=== PATIENT | female | born 1955 | race Caucasian/White ===

== ENCOUNTER → 2017-03-31 | Outpatient (CLI) | payer BC | LOC: LABMAIN 12:05 | PROVIDERS: ATTEND Family Medicine | DX: Z53.9 Procedure and treatment not carried out, unspecified reason (principal) ==

== ENCOUNTER 2017-04-11 02:37 | Emergency (ER) | payer BC ==
[2017-04-11 02:44] VITALS: TEMP 98.6
[2017-04-11] MEDS ORDERED: MECLIZINE 12.5 MG TAB PO STA ×2 (02:56→03:03)
[2017-04-11] MEDS ORDERED: SODIUM CHLORIDE 0.9% 1,000 ML IV STA (02:56)
--- NOTE | 2017-04-11 03:00 | ED ---
General Adult HPI - General Chief complaint: Dizziness Stated complaint: vertigo Time Seen by Provider: 04/11/17 02:49 Source: patient, RN notes reviewed Mode of arrival: wheelchair Limitations: no limitations - History of Present Illness Initial comments: 61-year-old female presents to the emergency department with the chief complaint of vertigo. Patient states that she woke up in the middle the night to go to the bathroom and all of a sudden the room was spinning around her. Patient states she had called to her daughter to come help get her up. Patient states that if she keeps her head forward she does not have symptoms but if she moves her head at all the room starts to spin. Patient states he was making her somewhat nauseous at home. Patient denies any falls traumas or injuries with this. Patient does admit to some mild pain in the back of the head. Patient states that she did have this ruled out 5 years ago which she was started on Antivert. Patient states he tried the maneuvers at home to get it to go away but she was unable to tolerate them. Family states as well as patient that they were concerned due to the intensity of her vertigo without that they should be seen. - Related Data Home Medications Medication Instructions Recorded Confirmed Estradiol [Estradiol] 1 patch TD WEEKLY 07/23/14 04/11/17 Diphenoxylate HCl/Atropine 1 each PO BID 04/11/17 04/11/17 [Lomotil 2.5-0.025 mg Tablet] Lisinopril [Prinivil] 20 mg PO DAILY 04/11/17 04/11/17 metroNIDAZOLE [Flagyl] 500 mg PO Q8HR 04/11/17 04/11/17 Previous Rx's Medication Instructions Recorded Meclizine [Antivert] 12.5 mg PO Q6H #30 tablet 04/11/17 Allergies Allergy/AdvReac Type Severity Reaction Status Date / Time Penicillins AdvReac Rash/Hives Verified 04/11/17 02:44 Review of Systems ROS Statement: Those systems with pertinent positive or pertinent negative responses have been documented in the HPI. ROS Other: All systems not noted in ROS Statement are negative. Past Medical History Past Medical History: Hypertension Additional Past Medical History / Comment(s): hormone replacement, menopause Vertigo History of Any Multi-Drug Resistant Organisms: None Reported Past Surgical History: No Surgical Hx Reported Past Psychological History: No Psychological Hx Reported Smoking Status: Former smoker Past Alcohol Use History: Occasional Past Drug Use History: None Reported General Exam - General Exam Comments Initial Comments: General: The patient is awake and alert, in no distress, and does not appear acutely ill. Eye: Pupils are equal, round and reactive to light, extra-ocular movements are intact; there is normal conjunctiva bilaterally. No signs of icterus. Ears, nose, mouth and throat: There are moist mucous membranes and no oral lesions. Neck: The neck is supple, there is no tenderness. Cardiovascular: There is a regular rate and rhythm. No murmur, rub or gallop is appreciated. Respiratory: Lungs are clear to auscultation, respirations are non-labored, breath sounds are equal. No wheezes, stridor, rales, or rhonchi. Gastrointestinal: Soft, non-distended, non-tender abdomen without masses or organomegaly noted. There is no rebound or guarding present. No CVA tenderness. Bowel sounds are unremarkable. Back: There is no tenderness to palpation in the midline. There is no obvious deformity. No rashes noted. Musculoskeletal: Normal ROM, no tenderness, There is no pedal edema. There is no calf tenderness or swelling. Sensation intact. Pulses equal bilaterally 2+. Neurological: CN II-XII intact, There are no obvious motor or sensory deficits. Coordination appears grossly intact. Speech is normal. No ataxia Skin: Skin is warm and dry and no rashes or lesions are noted. Psychiatric: Cooperative, appropriate mood & affect, normal judgment. Limitations: no limitations Course Vital Signs 04/11/17 02:40 Temperature 98.6 F Pulse Rate 85 Respiratory 18 Rate Blood Pressure 148/72 O2 Sat by Pulse 100 Oximetry EKG Findings - EKG Comments: EKG Findings:: normal sinus rhythm 71 bpm, normal axis, no atopy, no S-T depressions or elevations, Medical Decision Making - Medical Decision Making 61-year-old female presents to the emergency department with a chief complaint of vertigo patient has a history of vertigo and states this is much at the vertigo that she has had in the past. Patient states if she looks down and she notices increased dizziness. Patient received Antivert here and has started to feel better. This and we will give her Valium to help her symptoms so that she can go home to having night sweats. We did discuss we'll start her on antibiotics for home. We discussed return parameters and follow-up. Patient stated that she understood all questions have been answered. She will be discharged. - Lab Data Result diagrams: 04/11/17 03:10 Lab Results 04/11/17 04/11/17 Range/Units 03:10 03:10 WBC 10.4 (3.8-10.6) k/uL RBC 4.27 (3.80-5.40) m/uL Hgb 12.8 (11.4-16.0) gm/dL Hct 38.4 (34.0-46.0) % MCV 89.9 (80.0-100.0) fL MCH 30.0 (25.0-35.0) pg MCHC 33.3 (31.0-37.0) g/dL RDW 12.7 (11.5-15.5) % Plt Count 327 (150-450) k/uL Neutrophils % 80 % Lymphocytes % 12 % Monocytes % 5 % Eosinophils % 1 % Basophils % 0 % Neutrophils # 8.3 H (1.3-7.7) k/uL Lymphocytes # 1.2 (1.0-4.8) k/uL Monocytes # 0.6 (0-1.0) k/uL Eosinophils # 0.1 (0-0.7) k/uL Basophils # 0.0 (0-0.2) k/uL Urine Color Light Yellow Urine Appearance Clear (Clear) Urine pH 6.0 (5.0-8.0) Ur Specific [place] 1.001 (1.001-1.035) Urine Protein Negative (Negative) Urine Glucose (UA) Negative (Negative) Urine Ketones Negative (Negative) Urine Blood Negative (Negative) Urine Nitrite Negative (Negative) Urine Bilirubin Negative (Negative) Urine Urobilinogen <2.0 (<2.0) mg/dL Ur Leukocyte Esterase Negative (Negative) Disposition Clinical Impression: Vertigo Disposition: HOME SELF-CARE Condition: Stable Instructions: Vertigo (ED) Additional Instructions: Please use medication as discussed. Please follow up with family doctor if symptoms have not improved over the next two days. Please return to the emergency room if your symptoms increase or worsen or for any other concerns. Prescriptions: Meclizine [Antivert] 12.5 mg PO Q6H #30 tablet Referrals: Vikas Alejandre MD [Primary Care Provider] - 1-2 days
[2017-04-11 03:36] LABS: Appearance,Urine Clear (Clear); Bilirubin,Urine Negative (Negative); Glucose,Urine (UA) Negative (Negative); Ketones,Urine Negative (Negative); Leukocyte Esterase,Urine Negative (Negative); Nitrite,Urine Negative (Negative); Protein,Urine Negative (Negative); Specific Gravity,Urine 1.001 (1.001-1.035); UA Billing (MACRO vs. MICRO) CHEM; Urobilinogen,Urine <2.0 mg/dL (<2.0)
[2017-04-11 03:39] LABS: Basophils % (A) 0 %; CH 30.2; CHCM 33.7; Eosinophils # (A) 0.1 k/uL (0-0.7); Eosinophils % (A) 1 %; HCT 38.4 % (34.0-46.0); HDW 2.45; HGB 12.8 gm/dL (11.4-16.0); Luc # (Auto) 0.21; Luc % (Auto) 2; Lymphocytes # (A) 1.2 k/uL (1.0-4.8); Lymphocytes % (A) 12 %; MCHC 33.3 g/dL (31.0-37.0); MCV 89.9 fL (80.0-100.0); Monocytes # (A) 0.6 k/uL (0-1.0); Monocytes % (A) 5 %; Neutrophils # (A) 8.3 k/uL (1.3-7.7); Neutrophils % (A) 80 %; RBC 4.27 m/uL (3.80-5.40); RDW 12.7 % (11.5-15.5); WBC 10.4 k/uL (3.8-10.6); WBC (Perox) 10.66
[2017-04-11] MEDS ORDERED: DIAZEPAM 5 MG/ML 2 ML SYRINGE IVP STA (03:54)
[2017-04-11 04:04] VITALS: BP 145/68; PULSE 72; RESP 16
--- NOTE | 2017-04-11 04:07 | CT ---
EXAM: CT Head Without Intravenous Contrast CLINICAL HISTORY: Reason: Pain TECHNIQUE: Axial computed tomography images of the head/brain without intravenous contrast. CTDI is 57.40 mGy and DLP is 1064.30 mGy-cm. This CT exam was performed using one or more of the following dose reduction techniques: automated exposure control, adjustment of the mA and/or kV according to patient size, and/or use of iterative reconstruction technique. COMPARISON: MRI of the brain dated 12/08/2015 FINDINGS: Brain: Unremarkable. No hemorrhage. No significant white matter disease. No edema. Ventricles: Unremarkable. No ventriculomegaly. Bones/joints: Hyperostosis frontalis interna is seen. No acute fracture. Soft tissues: Unremarkable. Sinuses: 1.3 cm polyp versus mucous retention cyst in the right maxillary sinus. Mastoid air cells: Unremarkable as visualized. No mastoid effusion. IMPRESSION: No acute findings.
[2017-04-11 04:08] LABS: ALT 37 U/L (9-52); AST 30 U/L (14-36); Alkaline Phosphatase 47 U/L (38-126); Anion Gap 11 mmol/L; Blood Urea Nitrogen 14 mg/dL (7-17); Calcium 9.3 mg/dL (8.4-10.2); Carbon Dioxide 22 mmol/L (22-30); Chloride 107 mmol/L (98-107); Glucose 95 mg/dL (74-99); Non-African American GFR(MDRD) >60 (>60 ml/min/1.73 sqM); Potassium 4.4 mmol/L (3.5-5.1); Sodium 140 mmol/L (137-145); Total Bilirubin 0.4 mg/dL (0.2-1.3); Total Protein 5.9 g/dL (6.3-8.2)
== END 2017-04-11 04:28 | disposition home or self-care (01) ==
LOC: EC 02:37
DX: R42 Dizziness and giddiness (principal); R51 Headache; I10 Essential (primary) hypertension; Z88.0 Allergy status to penicillin; Z87.891 Personal history of nicotine dependence; Z79.890 Hormone replacement therapy; Z79.899 Other long term (current) drug therapy
CPT/HCPCS: 99284; 96374; 96361; 36415; 93005; 80053; 84484; 85025; 81003; 70450; J3360

== ENCOUNTER → 2018-02-13 | Outpatient (CLI) | payer BC ==
--- NOTE | 2018-02-13 11:44 | MM ---
Reason for exam: screening (asymptomatic). Last mammogram was performed 1 year and 8 months ago. History: Patient is postmenopausal. Family history of breast cancer in paternal grandmother at age 80. Taking estrogen for 7 years. Taking progesterone for 7 years. Taking other hormone for 7 years. Physical Findings: A clinical breast exam by your physician is recommended on an annual basis and results should be correlated with mammographic findings. MG 3D Screening Mammo W/Cad Bilateral CC and MLO view(s) were taken. Prior study comparison: June 12, 2016, bilateral MG 3d screening mammo w/cad. May 03, 2014, bilateral MG screening mammo w CAD. There are scattered fibroglandular densities. No suspicious abnormality. ASSESSMENT: Negative, BI-RAD 1 RECOMMENDATION: Routine screening mammogram of both breasts in 1 year.
== END ==
LOC: RADMAMWWP 07:13
PROVIDERS: ATTEND Obstetrics & Gynecology
DX: Z12.31 Encounter for screening mammogram for malignant neoplasm of breast (principal)
CPT/HCPCS: 77063; 77067

== ENCOUNTER → 2018-08-07 | Outpatient (CLI) | payer BC ==
[2018-08-07 09:00] LABS: Basophils # (A) 0.1 k/uL (0-0.2); Basophils % (A) 1 %; Eosinophils # (A) 0.1 k/uL (0-0.7); Eosinophils % (A) 2 %; HCT 42.3 % (34.0-46.0); Lymphocytes # (A) 1.6 k/uL (1.0-4.8); Lymphocytes % (A) 29 %; MCHC 33.1 g/dL (31.0-37.0); MCV 90.6 fL (80.0-100.0); Mean Platelet Volume 7.4; Monocytes # (A) 0.4 k/uL (0-1.0); Monocytes % (A) 7 %; Neutrophils # (A) 3.3 k/uL (1.3-7.7); Neutrophils % (A) 59 %; Platelet Count 205 k/uL (150-450); RBC 4.67 m/uL (3.80-5.40); RDW 12.4 % (11.5-15.5); WBC 5.5 k/uL (3.8-10.6)
[2018-08-07 17:52] LABS: Albumin 4.6 g/dL (3.80-4.90); Albumin/Globulin Ratio 2.42 (1.20-2.10); Bilirubin, Conjugated 0.2 mg/dL (0.20-0.40); Bilirubin,Unconjugated 0.4 mg/dL; Calcium 9.6 mg/dL (8.7-10.3); Globulin 1.9 g/dL (2.1-3.7); Total Bilirubin 0.6 mg/dL (0.3-1.2); Total Protein 6.5 g/dL (6.2-8.2)
[2018-08-07 17:55] LABS: T4, Free (Free Thyroxine) 1.3 ng/dL (0.80-1.80)
[2018-08-07 18:04] LABS: Thyroid Peroxidase Antibodies 50.6 U/mL (0.0-60.0); Vitamin D 25 Hydroxy 43.5 ng/mL (30.0-100.0)
[2018-08-07 18:09] LABS: Hemoglobin A1C 5.2 % (4.0-6.0); Insulin Level 3.6 mIU/mL (3.0-25.0)
[2018-08-08 05:54] LABS: Mycoplasma IgM Antibody 0.2 INDEX (<=0.90)
== END | disposition home or self-care (01) ==
LOC: LABWHC1 08:08
PROVIDERS: ATTEND General Practice
DX: D64.9 Anemia, unspecified (principal); D68.9 Coagulation defect, unspecified; E03.9 Hypothyroidism, unspecified; E06.9 Thyroiditis, unspecified; E16.1 Other hypoglycemia; E55.9 Vitamin D deficiency, unspecified; E61.2 Magnesium deficiency; E72.11 Homocystinuria; E78.00 Pure hypercholesterolemia, unspecified; J16.0 Chlamydial pneumonia; R73.09 Other abnormal glucose; R94.4 Abnormal results of kidney function studies; R94.5 Abnormal results of liver function studies; E60 Dietary zinc deficiency; E61.0 Copper deficiency; Z13.9 Encounter for screening, unspecified
CPT/HCPCS: 36415; 80076; 82306; 82310; 82525; 82565; 82947; 83036; 83090; 83525; 83735; 84439; 84443; 84481; 84520; 84630; 85025; 85384; 86141; 86376; 86738; 86800; 86900; 86901

== ENCOUNTER → 2019-03-30 | Outpatient (CLI) | payer BC ==
--- NOTE | 2019-03-30 09:22 | MM ---
Reason for exam: screening (asymptomatic). Last mammogram was performed 1 year and 1 month ago. History: Patient is postmenopausal. Family history of breast cancer in paternal grandmother at age 80. Taking estrogen for 8 years 1 month. Taking progesterone for 8 years 1 month. Taking other hormone for 7 years. Physical Findings: A clinical breast exam by your physician is recommended on an annual basis and results should be correlated with mammographic findings. MG 3D Screening Mammo W/Cad Bilateral CC and MLO view(s) were taken. Prior study comparison: February 13, 2018, bilateral MG 3d screening mammo w/cad. June 12, 2016, bilateral MG 3d screening mammo w/cad. The breast tissue is heterogeneously dense. This may lower the sensitivity of mammography. No suspicious abnormality. No significant changes when compared with prior studies. ASSESSMENT: Negative, BI-RAD 1 RECOMMENDATION: Routine screening mammogram of both breasts in 1 year.
== END | disposition home or self-care (01) ==
LOC: RADMAMWWP 07:02
PROVIDERS: ATTEND Family Medicine
DX: Z12.31 Encounter for screening mammogram for malignant neoplasm of breast (principal)
CPT/HCPCS: 77063; 77067

== ENCOUNTER → 2019-05-12 | Outpatient (CLI) | payer BC | END | disposition home or self-care (01) | LOC: LABWHC1 08:36 | PROVIDERS: ATTEND General Practice | DX: E78.00 Pure hypercholesterolemia, unspecified (principal); E72.11 Homocystinuria | CPT/HCPCS: 36415; 83090 ==

== ENCOUNTER 2020-02-14 21:32 | Emergency (ER) | payer BC ==
[2020-02-14 21:39] VITALS: RESP 18
[2020-02-14] MEDS ORDERED: SODIUM CHLORIDE 0.9% 1,000 ML IV STA (21:56)
--- NOTE | 2020-02-14 22:05 | ED ---
Abdominal Pain HPI - General Chief Complaint: Abdominal Pain Stated Complaint: abd pain Time Seen by Provider: 02/14/20 21:42 Source: patient, EMS Mode of arrival: EMS Limitations: no limitations - History of Present Illness Initial Comments: Patient is 64-year-old female presenting to emergency Department with a chief complaint of abdominal pain. Patient reports a few hours prior to arrival she was eating a grilled cheese sandwich and 10 minutes after she developed sudden onset of lower abdominal pain along with nausea and multiple episodes of non bilious, nonbloody vomiting. She also reports some abdominal bloating .Patient also reports some stool incontinence. Patient reports the abdominal pain became more severe and she called EMS. Patient reports in the ambulance she received some antibiotics which drastically improved her symptoms. Patient reports the pain is minimal at this point. Denies any chest pain shortness of breath nausea at this time. Denies any history of previous abdominal surgeries. Denies any urinary or vaginal symptoms. - Related Data Home Medications Medication Instructions Recorded Confirmed Estradiol 1 patch TD WEEKLY 07/23/14 04/11/17 Diphenoxylate HCl/Atropine 1 each PO BID 04/11/17 04/11/17 [Lomotil 2.5-0.025 mg Tablet] Lisinopril [Prinivil] 20 mg PO DAILY 04/11/17 04/11/17 metroNIDAZOLE [Flagyl] 500 mg PO Q8HR 04/11/17 04/11/17 Previous Rx's Medication Instructions Recorded Meclizine [Antivert] 12.5 mg PO Q6H #30 tablet 04/11/17 Ondansetron Odt [Zofran Odt] 4 mg PO Q8HR PRN #10 tab 02/14/20 Allergies Allergy/AdvReac Type Severity Reaction Status Date / Time Penicillins AdvReac Rash/Hives Verified 04/11/17 02:44 Review of Systems ROS Statement: Those systems with pertinent positive or pertinent negative responses have been documented in the HPI. ROS Other: All systems not noted in ROS Statement are negative. Past Medical History Past Medical History: Hypertension Additional Past Medical History / Comment(s): hormone replacement, menopause Vertigo History of Any Multi-Drug Resistant Organisms: None Reported Past Surgical History: No Surgical Hx Reported Past Psychological History: No Psychological Hx Reported Smoking Status: Former smoker Past Alcohol Use History: Occasional Past Drug Use History: None Reported General Exam Limitations: no limitations General appearance: alert, in no apparent distress Head exam: Present: atraumatic, normocephalic, normal inspection Eye exam: Present: normal appearance, PERRL, EOMI Pupils: Present: normal accommodation ENT exam: Present: normal exam, normal oropharynx, mucous membranes moist, TM's normal bilaterally, normal external ear exam Neck exam: Present: normal inspection, full ROM Respiratory exam: Present: normal lung sounds bilaterally Cardiovascular Exam: Present: regular rate, normal rhythm, normal heart sounds GI/Abdominal exam: Present: soft, tenderness (very mild diffuse lower abdominal tenderness.). Absent: distended, guarding, rebound, rigid Extremities exam: Present: normal inspection, full ROM Back exam: Present: normal inspection, full ROM Neurological exam: Present: alert, oriented X3 Psychiatric exam: Present: normal affect, normal mood Skin exam: Present: warm, dry, intact, normal color Course Vital Signs 02/14/20 02/14/20 21:36 23:33 Temperature 98.5 F 97.8 F Pulse Rate 77 78 Respiratory 18 18 Rate Blood Pressure 132/65 127/78 O2 Sat by Pulse 99 98 Oximetry Medical Decision Making - Medical Decision Making Patient is 64-year-old female presenting to emergency Department with a chief co mplaint of abdominal pain nausea vomiting diarrhea. On exam patient only had mild discomfort in the lower abdominal region. Rest of physical examination is unremarkable. Patient was only given 4 mg of Zofran in the ambulance. I gave the patient 1 L bolus fluids. Reevaluation patient reports no symptoms whatsoever. EKG shows normal sinus rhythm with no ST changes. UA, CBC and CMP are unremarkable. Patient states she feels comfortable and is ready go home. Return parameters were thoroughly discussed with patient was understanding and agreeable. Case discussed with physician. - Lab Data Result diagrams: 02/14/20 22:00 02/14/20 22:15 Lab Results 02/14/20 02/14/20 02/14/20 Range/Units 22:00 22:15 22:15 WBC 5.6 (3.8-10.6) k/uL RBC 4.56 (3.80-5.40) m/uL Hgb 13.3 (11.4-16.0) gm/dL Hct 42.0 (34.0-46.0) % MCV 92.0 (80.0-100.0) fL MCH 29.2 (25.0-35.0) pg MCHC 31.7 (31.0-37.0) g/dL RDW 13.1 (11.5-15.5) % Plt Count 188 (150-450) k/uL Neutrophils % 67 % Lymphocytes % 26 % Monocytes % 4 % Eosinophils % 2 % Basophils % 1 % Neutrophils # 3.8 (1.3-7.7) k/uL Lymphocytes # 1.4 (1.0-4.8) k/uL Monocytes # 0.2 (0-1.0) k/uL Eosinophils # 0.1 (0-0.7) k/uL Basophils # 0.0 (0-0.2) k/uL Sodium 137 (137-145) mmol/L Potassium 4.2 (3.5-5.1) mmol/L Chloride 105 (98-107) mmol/L Carbon Dioxide 28 (22-30) mmol/L Anion Gap 4 mmol/L BUN 18 H (7-17) mg/dL Creatinine 0.68 (0.52-1.04) mg/dL Est GFR (CKD-EPI)AfAm >90 (>60 ml/min/1.73 sqM) Est GFR (CKD-EPI)NonAf >90 (>60 ml/min/1.73 sqM) Glucose 104 H (74-99) mg/dL Calcium 8.8 (8.4-10.2) mg/dL Total Bilirubin 0.5 (0.2-1.3) mg/dL AST 26 (14-36) U/L ALT 16 (4-34) U/L Alkaline Phosphatase 59 (38-126) U/L Total Protein 6.0 L (6.3-8.2) g/dL Albumin 3.7 (3.5-5.0) g/dL Amylase 100 (30-110) U/L Lipase 327 H (23-300) U/L Urine Color Yellow Urine Appearance Clear (Clear) Urine pH 5.5 (5.0-8.0) Ur Specific [place] 1.018 (1.001-1.035) Urine Protein Trace H (Negative) Urine Glucose (UA) Negative (Negative) Urine Ketones Negative (Negative) Urine Blood Negative (Negative) Urine Nitrite Negative (Negative) Urine Bilirubin Negative (Negative) Urine Urobilinogen 3.0 (<2.0) mg/dL Ur Leukocyte Esterase Negative (Negative) Disposition Clinical Impression: Abdominal pain, Nausea vomiting and diarrhea Disposition: HOME SELF-CARE Condition: Stable Instructions (If sedation given, give patient instructions): Abdominal Pain (ED) Additional Instructions: Take prescribed medication as needed. Return to emergency department if symptoms worsen. Prescriptions: Ondansetron Odt [Zofran Odt] 4 mg PO Q8HR PRN #10 tab PRN Reason: Nausea Is patient prescribed a controlled substance at d/c from ED?: No Referrals: Vikas Alejandre MD [Primary Care Provider] - 1-2 days Time of Disposition: 23:20
[2020-02-14 22:15] LABS: Basophils % (A) 1 %; Eosinophils # (A) 0.1 k/uL (0-0.7); Eosinophils % (A) 2 %; HGB 13.3 gm/dL (11.4-16.0); Lymphocytes # (A) 1.4 k/uL (1.0-4.8); Lymphocytes % (A) 26 %; MCH 29.2 pg (25.0-35.0); MCHC 31.7 g/dL (31.0-37.0); Mean Platelet Volume 8.3; Monocytes # (A) 0.2 k/uL (0-1.0); Monocytes % (A) 4 %; Neutrophils # (A) 3.8 k/uL (1.3-7.7); Neutrophils % (A) 67 %; Platelet Count 188 k/uL (150-450); RBC 4.56 m/uL (3.80-5.40); RDW 13.1 % (11.5-15.5); WBC 5.6 k/uL (3.8-10.6)
[2020-02-14 22:35] LABS: Appearance,Urine Clear (Clear); Bilirubin,Urine Negative (Negative); Blood,Urine Negative (Negative); Color,Urine Yellow; Glucose,Urine (UA) Negative (Negative); Ketones,Urine Negative (Negative); Leukocyte Esterase,Urine Negative (Negative); Nitrite,Urine Negative (Negative); PH, Urine 5.5 (5.0-8.0); Protein,Urine Trace (Negative); Specific Gravity,Urine 1.018 (1.001-1.035)
[2020-02-14 22:47] LABS: ALT 16 U/L (4-34); AST 26 U/L (14-36); African American GFR (CKD) >90 (>60 ml/min/1.73 sqM); Albumin 3.7 g/dL (3.5-5.0); Alkaline Phosphatase 59 U/L (38-126); Amylase 100 U/L (30-110); Anion Gap 4 mmol/L; Blood Urea Nitrogen 18 mg/dL (7-17); Calcium 8.8 mg/dL (8.4-10.2); Carbon Dioxide 28 mmol/L (22-30); Chloride 105 mmol/L (98-107); Glucose 104 mg/dL (74-99); Non-African American GFR(CKD) >90 (>60 ml/min/1.73 sqM); Potassium 4.2 mmol/L (3.5-5.1); Sodium 137 mmol/L (137-145); Total Bilirubin 0.5 mg/dL (0.2-1.3)
[2020-02-14 23:35] VITALS: BP 127/78; PULSE 78; TEMP 97.8
== END 2020-02-14 23:35 | disposition home or self-care (01) ==
LOC: SUPCPDRO 21:32 → EC 21:32
DX: R10.30 Lower abdominal pain, unspecified (principal); R11.2 Nausea with vomiting, unspecified; R19.7 Diarrhea, unspecified; I10 Essential (primary) hypertension; Z79.899 Other long term (current) drug therapy; Z88.0 Allergy status to penicillin; Z87.891 Personal history of nicotine dependence
CPT/HCPCS: 36415; 80053; 81003; 82150; 83690; 85025; 93005; 96360; 99284

== ENCOUNTER → 2020-05-16 | Outpatient (CLI) | payer BC ==
--- NOTE | 2020-05-17 10:57 | MM ---
Reason for exam: screening (asymptomatic). Last mammogram was performed 1 year and 2 months ago. History: Patient is postmenopausal. Family history of breast cancer in paternal grandmother at age 80. Taking estrogen for 8 years 1 month. Taking progesterone for 8 years 1 month. Taking other hormone for 7 years. Physical Findings: A clinical breast exam by your physician is recommended on an annual basis and results should be correlated with mammographic findings. MG 3D Screening Mammo W/Cad Bilateral CC and MLO view(s) were taken. Prior study comparison: March 30, 2019, bilateral MG 3d screening mammo w/cad. February 13, 2018, bilateral MG 3d screening mammo w/cad. There are scattered fibroglandular densities. There is no discrete abnormality. ASSESSMENT: Negative, BI-RAD 1 RECOMMENDATION: Routine screening mammogram of both breasts in 1 year.
== END | disposition home or self-care (01) ==
LOC: RADMAMWWP 07:23
PROVIDERS: ATTEND Family Medicine
DX: Z12.31 Encounter for screening mammogram for malignant neoplasm of breast (principal)
CPT/HCPCS: 77063; 77067

== ENCOUNTER 2020-05-27 12:03 | Day surgery (SDC) | payer BC ==
[2020-05-25 11:55] VITALS: BMI 26.6
[~2020-05-27 12:03] MED LIST: LACTATED RINGERS 1,000 ML IV SCH; LIDOCAINE 1% (10MG/ML) FOR IV START INTRADERMA PRN
[2020-05-27 12:43] VITALS: TEMP 97.6
[2020-05-27] MEDS ORDERED: MIDAZOLAM 2 MG/2 ML VIAL ONE (13:30)
[2020-05-27] MEDS ORDERED: PROPOFOL 10 MG/ML 20 ML VIAL IV ONE (13:30)
--- NOTE | 2020-05-27 14:03 | P.PCN ---
Date of Procedure: 05/27/20 Procedure(s) Performed: BRIEF HISTORY: Patient is a 64-year-old pleasant white female scheduled for an elective colonoscopy as a part of positive cologuard PROCEDURE PERFORMED: Colonoscopy. PREOPERATIVE DIAGNOSIS: Positive Cologuard. IV sedation per Anesthesia. PROCEDURE: After informed consent was obtained, the patient, was brought into the endoscopy unit. IV sedation was administered by Anesthesia under continuous monitoring. Digital rectal examination was normal. Initially the Olympus CF-160 flexible video colonoscope was then inserted in the rectum, gradually advanced into the sigmoid: Further advancement was not possible because of acute angle duration of this area. The scope was removed and a pediatric colonoscope was then introduced into the rectum and with moderate to severe difficulty the scope was advanced into the cecum . Careful examination was performed as the scope was gradually being withdrawn. Ileocecal valve and the appendiceal orifice were visualized and appeared normal. Prep was excellent. Mucosa of the cecum, ascending colon, transverse colon, descending colon, sigmoid colon, and rectum appeared normal. Moderate left sided diverticulosis seen. Retroflexion was performed in the rectum and no lesions were seen. The patient tolerated the procedure well. IMPRESSION: Normal-appearing colon from rectum to cecum with no evidence of colorectal neoplasia . Extensive left-sided diverticulosis. RECOMMENDATIONS: Findings of this examination were discussed with the patient as well as her family. She was advised to have a repeat screening colonoscopy in 10 years..
[2020-05-27 14:23] VITALS: BP 122/72; PULSE 90; RESP 20
== END 2020-05-27 14:42 | disposition home or self-care (01) ==
LOC: ORWHC2ENDO 12:03
PROVIDERS: ATTEND Internal Medicine Gastroenterology
DX: K57.30 Diverticulosis of large intestine without perforation or abscess without bleeding (principal); I10 Essential (primary) hypertension; N32.81 Overactive bladder; Z88.0 Allergy status to penicillin; Z79.899 Other long term (current) drug therapy; Z98.891 History of uterine scar from previous surgery
CPT/HCPCS: 45378; J2250; J2704